=== PATIENT | female | born 1975 | race Caucasian/White ===

== ENCOUNTER 2023-01-09 10:59 | Emergency (ER) | payer OTHER, MEDICAID, SELFPAY ==
[2023-01-09 11:15] VITALS: BP 119/62; PULSE 80; RESP 20; TEMP 36.9; O2SAT 99; BMI 26.6
--- NOTE | 2023-01-09 13:26 | PC.NURSE ---
called pt from waiting room multiple times without answer. checked by fireplace in surgical waiting area without response.
== END 2023-01-09 13:27 | disposition left against medical advice (07) ==
PROVIDERS: Emergency Provider Emergency Medicine
DX: R79.89 Other specified abnormal findings of blood chemistry (principal)
CPT/HCPCS: 81003; 81025; 99282